=== PATIENT | male | born 1940 | race Caucasian/White ===

== ENCOUNTER → 2017-10-21 | Outpatient (CLI) | payer OTHER ==
[~2017-10-21] MED LIST: ACET-1256 PO; ALBU4TAB10 PO; ATOR10TA82 PO; CINN500C13 PO; DICL50TA3 PO; DOXA4TAB2 PO; GLC/500 PO; LOSA50TA6 PO; METO100T44 PO; NAPR1TAB9 PO; NXM/40 PO; OXYB10TA13 PO; PREG1CAP28 PO; PRLSR20 PO; SERT25TA PO; SPRIN/30 INH; TURM500T PO; UMEC1AER; VNTHFA/IN INH
--- NOTE | 2017-10-21 12:06 | DIAGNOSTIC IMAGING REPORT ---
THORACOLUMBAR SPINE 2 VIEWS HISTORY: 77 years-old Male POST SX back pain with history of prior neurostimulator placement COMPARISON: None available TECHNIQUE: 4 views of the thoracolumbar spine FINDINGS: Battery pack from a neurostimulator device overlies the right lower back gluteal region. There are 2 leads present which enter the posterior aspect of the central canal at the level of L1-L2. Superior most lead terminates at the level of T6-T7 and the inferior most lead terminates at the level of T8-T9. The leads appear intact without evidence of fracture or discontinuity. Advanced intervertebral disc space narrowing, endplate spurring and facet arthropathy. Postoperative changes from prior posterior decompression with interbody edwin and screw fusion and discectomy at L4-L5 and L5-S1. Hardware appears intact. There is 7 mm anterolisthesis L4 on L5. There appears to be partial bony fusion involving the L2-L3 levels. Extensive vascular calcifications are noted. IMPRESSION: 1. Postoperative changes of the lumbar spine as above without acute fracture or subluxation. 2. Battery pack with near stimulator leads as above. No evidence of lead fracture or discontinuity. The above report was generated using voice recognition software. It may contain grammatical, syntax or spelling errors. Electronically signed by: Vern Mcnair M.D. 10/21/2017 12:05 PM Dictated Date/Time: 10/21/2017 12:01 PM
== END | disposition home or self-care (01) ==
LOC: C.RADBC 11:25
PROVIDERS: ATTEND Internal Medicine
DX: Z47.89 Encounter for other orthopedic aftercare (principal)